=== PATIENT | female | born 1995 | race Asian ===

== ENCOUNTER 2016-09-11 14:08 | Emergency (ER) | payer BC ==
[2016-09-11 14:50] VITALS: BP 101/70; PULSE 76; RESP 18; TEMP 98.6; O2SAT 98
--- NOTE | 2016-09-11 15:23 | UCPHY ---
H & P Time Seen by Provider: 09/11/16 15:10 Patient Type: New HPI/ROS: This patient presents with a chief complaint of a sore throat which she has had for 3 days. She has had that pressure in left ear and the throat pain is primarily on the left. She has had minimal congestion and no cough she has had a subjective fever. She has noticed that opening her mouth is painful. Patient was given penicillin by her mother anus had 2 doses of 500 mg each the last being at 11:30 a.m. today. Smoking Status: Never smoked Physical Exam: This is a well-developed well-nourished female who is mildly uncomfortable. She is alert lucid and has a normal mental status. Throat: There is swelling in the left side of the throat but I do not believe that this represents a peritonsillar abscess although it could be an early 1. There is erythema. Neck: There is anterior left-sided tender adenopathy. There is none on the right and none posteriorly. Ears: Tympanic membranes are normal. Constitutional: Initial Vital Signs Temperature (C) 37.0 C 09/11/16 14:49 Heart Rate 76 09/11/16 14:49 Respiratory Rate 18 09/11/16 14:49 Blood Pressure 101/70 09/11/16 14:49 O2 Sat (%) 98 09/11/16 14:49 O2 Delivery Mode Room Air Allergies/Adverse Reactions: No Known Allergies Allergy (Unverified 09/11/16 14:38) Home Medications: Medication Instructions Recorded Penicillin V Potassium [Pen Vk] 500 mg PO QID #38 tab 09/11/16 Medical Decision Making Differential Diagnosis: This patient may have an early peritonsillar abscess but I do not feel that surgery is indicated currently. She was strongly advised to seek re-evaluation if her symptoms have not improved in the next 24 hours or go to emergency room if her symptoms continue to worsen. - Data Points Laboratory Results: 09/11/16 09/11/16 Unknown 14:40 Group A Strep Screen NEGATIVE (NEGATIVE) Group A Strep DNA Pending Departure - Departure Disposition: Home, Routine, Self-Care Clinical Impression: Streptococcal tonsillitis Condition: Good Instructions: Strep Throat (ED) Additional Instructions: If your symptoms have not improved in 24 hours you need to be re-evaluated. You may be developing an abscess which could make this illness much more severe. Return here if necessary. Adult Pain & Fever Control: We recommend Acetaminophen (Tylenol) and Ibuprofen (Motrin, Advil) for pain and fever control. When fever is high or pain severe, both drugs can be used at the same time, but at different intervals. Please note the time differences. Your dose is: Acetaminophen [650]mg every 4 to 6 hours ibuprofen [600]mg every [6] hours with food OR naproxen Sodium (Aleve) [440]mg every 12 hours. Note: do not take Acetaminophen with Hydrocodone (Vicodin, Lortab) or Oxycodone (Percocet). These medications also contain Acetaminophen. No more than 3000 mg of Acetaminophen should be taken in 24 hours (for an adult) . The maximal dose of ibuprofen that it is safe in a 24-hour period is 2400 mg. You may take 400 mg every 4 hours, 600 mg every 6 hours or 800 mg every 8 hours safely. Referrals: NONE *PRIMARY CARE P,. [Primary Care Provider] - As per Instructions Prescriptions: Penicillin V Potassium [Pen Vk] 500 mg PO QID #38 tab - PQRS PQRS Measurement: Not applicable
== END 2016-09-11 15:45 | disposition home or self-care (01) ==
LOC: CED 14:08
DX: R07.0 Pain in throat (principal); H93.92 Unspecified disorder of left ear
CPT/HCPCS: 87880-PO; 99203-PO; G0463-PO

== ENCOUNTER 2016-09-11 21:00 | Inpatient (IN) | payer BC ==
[2016-09-11] MEDS ORDERED: NS 1,000 ML IV ONE (22:05)
[2016-09-11] MEDS ORDERED: DEXAMETHASONE 10 MG/ML VIAL ONE (22:09)
[2016-09-11] MEDS ORDERED: DEXAMETHASONE 10 MG/ML VIAL IVP ONE (22:13)
--- NOTE | 2016-09-11 22:16 | EDPHY ---
General Narrative: CHIEF COMPLAINT: Sore throat, difficulty swallowing HISTORY OF PRESENT ILLNESS: sore throat that started on Sunday. Mild 1st and now severe. Continually worsening. Difficult to eat or drink anything. No difficulty breathing. Minimal cough. No fever or chills. No headache. her mother is a physician and prescribed penicillin over the weekend without improvement. She was seen at urgent care Earlier today, when they diagnosed her with a peritonsillar abscess and sent her to the emergency department. No other associated complaints or modifying factors. REVIEW OF SYSTEMS: Ten systems reviewed and are negative unless otherwise noted in the HPI EXAMINATION General Appearance: Alert, no distress Head: normocephalic, atraumatic Eyes: Pupils equal and round, no conjunctival pallor or injection . EOMs intact. ENT, Mouth: Mucous membranes moist . Uvula significantly deviated to the right. There is a significant left-sided tonsillar abscess with erythema. Trismus is noted. Neck: Normal inspection, supple, non-tender . Anterior cervical lymphadenopathy. Respiratory: Lungs are clear to auscultation . No wheezing, rhonchi or crackles. Cardiovascular: Regular rate and rhythm . No murmur. Neurological: A&O, nonfocal, normal gait . Strength symmetric in all limbs. Skin: Warm and dry, no rash Extremities: Nontender, no pedal edema Psychiatric: Mood and affect normal DIFFERENTIAL DIAGNOSES: Including but not limited to Peritonsillar abscess, strep pharyngitis, viral pharyngitis, pharyngitis MDM: 10:05 p.m. sore throat with evidence of peritonsillar abscess. She does have trismus and deviation of the uvula to the right. She has significant erythema and edema. The airway is patent but minimally so. She is in no acute distress and she is managing her secretions. We will place IV access, IV fluid, Decadron and I have put a page out for Ear Nose and Throat to see her here in the emergency department. 10:20 p.m. I discussed the case with the on-call physician operations assistant Aureliano Flores. he will come see the patient in the emergency department to drain the abscess. He has requested 300 mg IV clindamycin. 11:15 p.m. ZAYRA Flores is at bedside performing incision and drainage. In addition to the Percocet and clindamycin as prescribed, he is requesting Decadron. He liked the patient be on 8 mg daily for 2 days starting tomorrow, and then 4 mg daily for 2 days. He will provide discharge instructions as well as follow-up instructions with himself or with his supervising physician. 11:45 p.m. ZAYRA Mark attempted to needle aspirate as well as incise and drained without significant return. He feels this is likely more phlegmon than abscess. He is requesting admission to the hospitalist and they will provide consultation. I have discussed this with the hospitalist Dr. Marino. She will admit the patient. The patient is admitted in stable condition being evaluated by the hospitalist at this time. SUPERVISION: This patient was independently evaluated without the aide of supervising physician. - History Smoking Status: Never smoked - Objective Vital Signs: Initial Vital Signs Temperature (C) 98.6 F 09/11/16 21:04 Heart Rate 67 09/11/16 21:04 Respiratory Rate 16 09/11/16 21:04 Blood Pressure 117/78 09/11/16 21:04 O2 Sat (%) 98 09/11/16 21:04 O2 Delivery Mode Room Air Allergies/Adverse Reactions: No Known Allergies Allergy (Verified 09/11/16 21:07) Home Medications: Medication Instructions Recorded Penicillin V Potassium [Pen Vk] 500 mg PO QID #38 tab 09/11/16 Medications Given: Discontinued Medications Dexamethasone (Decadron Injection) 10 mg IVP EDNOW ONE Stop: 09/11/16 22:14 Last Admin: 09/11/16 22:13 Dose: 10 mg Sodium Chloride (Ns) 1,000 mls @ 0 mls/hr IV ONCE ONE PRN Reason: Wide Open Stop: 09/11/16 22:06 Last Admin: 09/11/16 22:13 Dose: 1,000 mls Clindamycin Phosphate/Dextrose (Cleocin 600 Mg (Premix)) 50 mls @ 100 mls/hr IV ONCE ONE PRN Reason: Protocol Stop: 09/11/16 22:46 Last Admin: 09/11/16 22:29 Dose: 50 mls Departure - Departure Disposition: [facility] Inpatient Acute Clinical Impression: Peritonsillar abscess Condition: Good Instructions: Clindamycin (By mouth), Oxycodone/Acetaminophen (By mouth), Peritonsillar Abscess (ED) Additional Instructions: Follow up with the ENT physician as discussed. Return to the ER for worsening pain, difficulty swallowing or drooling Referrals: NONE *PRIMARY CARE P,. [Primary Care Provider] - As per Instructions Jc Jensen MD [Medical Doctor] - As per Instructions
[2016-09-11] MEDS ORDERED: CLINDAMYCIN 600 MG/DEXTROSE 50 ML IV ONE (22:17)
[2016-09-11] MEDS ORDERED: OXYCODONE/APAP 5/325MG PREPACK#4 BTL TAKEHOME ONE (22:23)
[2016-09-11] MEDS ORDERED: CLINDAMYCIN 150MG PREPACK#6 BTL TAKEHOME ONE (22:24)
[2016-09-12] MEDS ORDERED: HYDROCODONE/APAP 5/325 TAB PO PRN (00:13)
[2016-09-12] MEDS ORDERED: ACETAMINOPHEN 325 MG TAB PO PRN (00:13)
[2016-09-12] MEDS ORDERED: ONDANSETRON DISINTEGRATING 4 MG TAB PO PRN (00:13)
[2016-09-12] MEDS ORDERED: ONDANSETRON 4 MG/2 ML VIAL IVP PRN (00:13)
[2016-09-12] MEDS ORDERED: ACETAMINOPHEN 325 MG TAB PO ONE (00:19)
[2016-09-12] MEDS ORDERED: ACETAMINOPHEN 500 MG TAB ONE (00:23)
--- NOTE | 2016-09-12 00:57 | GHP ---
DATE OF ADMISSION: 09/11/2016 CHIEF COMPLAINT: Sore throat. HISTORY OF PRESENT ILLNESS: A 21-year-old female who presents with complaints of progressing sore t hroat. Patient initially had symptoms approximately 72 hours prior to presentation and reports that steadily she has had increasing pain over the course of the last 3 days. Patient's mother is a phy sician and initiated outpatient penicillin orally preceding her presentation to the emergency depart ment. The patient reports marked pain with fluid and solid food intake, which has greatly limited h er nutritional and fluid intake in the course of the last 3 days. The patient denies any nausea or vomiting. Denies diarrhea. Endorses subjective fevers and chills. Denies any new rashes. 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 She denies any headache or visio n changes. PAST MEDICAL HISTORY: None. SOCIAL HISTORY: Negative for tobacco. Rare alcohol. No illicit drugs or marijuana. FAMILY HISTORY: Positive for lung cancer. REVIEW OF SYSTEMS: A 10-point review of systems is negative with the exception of that reported in the HPI. PHYSICAL EXAMINATION: VITAL SIGNS: Blood pressure is 118/67, heart rate 72, respiratory rate 16, 9 9% on room air, temperature is 37.7. GENERAL: This is a pleasant young female in mild distress. H EENT: Notable for marked swelling of the left side of the lower jaw line. Oropharynx has notable s welling of the left-sided tonsils peritonsillar region. Right side has some anterior palpable subme ntal nodes, otherwise markedly smaller lymphadenopathy. No posterior auricular or occipital nodes a re appreciated. Eyes are negative for any icterus. CARDIAC: Patient is regular rate and rhythm. PULMONARY: Good respiratory effort. Clear to auscultation bilaterally. GASTROINTESTINAL: Positiv e bowel sounds. ABDOMEN: Soft and nontender to palpation in all 4 quadrants. MUSCULOSKELETAL: Ne gative for any lower extremity edema. SKIN: Negative for any rashes. NEUROLOGIC: She is alert an d oriented x3. PSYCHIATRIC: She is pleasant and cooperative on interview and examination. LABORATORY DATA: A group A strep screen is negative. DNA for strep is pending. Telemetry, which I personally reviewed and interpreted shows sinus rhythm. ASSESSMENT AND PLAN: This is a 21-year-old female presenting with progressing sore throat and unila teral neck swelling. 1. Acute presumed peritonsillar abscess/phlegmon. Attempted drainage was performed by the ENT in [facility] emergency department and no successful exudate was drained. Patient will be admitted, placed on IV antibiotics, IV pain medications, and IV fluids overnight with a re-attempt and evaluation by ENT in the morning. The patient has had limited ability to take p.o. Will continue IV fluids overnigh t as I suspect her oral intake will remain limited and use IV pain medications for any pain requirin g treatment. Suspect her pain may be acutely worse after the attempted incision and drainage. We w ill treat with IV Decadron. In the morning can re-evaluate ongoing use of steroids at that time wit h ENT. 2. Low-grade fever. Will check a CBC, treat with Tylenol and again empiric antibiotics with clinda mycin. 3. Prophylaxis. Patient is young and ambulating. Will use sequential compression devices while in bed. DIET: Regular as she can tolerate. DISPOSITION: I expect less than 2 midnights if the patient responds well to IV antibiotics. Discus sed the case with the ENT, as well as the emergency department. Patient will be triaged to the [facility]-surgical floor for care. /[id number]/MODL
[2016-09-12] MEDS: NS 1,000 ML IV SCH ×2 (01:08→17:02)
--- NOTE | 2016-09-12 05:14 | GCON ---
CONSULT NOTE. HISTORY OF PRESENT ILLNESS: This is a 21-year-old female, who presents to the emergency department this evening for sore throat. Patient states it started 2- 3 days ago. It has gradually worsened over that time. The patient's mother is a physician and prescribed her a course of penicillin over the weekend, without any significant improvement. She notes that the left side of her throat is much worse. Admits to very mild left-sided ear pain. Does have some trismus. No difficulty breathing. No fevers or chills. PHYSICAL EXAM: This is a 21-year-old female, in no acute distress. Her head and face are normal. Voice is slightly muffled. No stridor. Oropharyngeal exam reveals uvula is edematous and slightly deviated to the right. Soft palate with a slight bulge on the left consistent with possible peritonsillar abscess vs phlegmon. NECK: Palpation of neck reveals left-sided tender lymphadenopathy. Informed consent was obtained from the patient for incision and drainage of left peritonsillar abscess. Hurricaine spray was used for topical anesthesia. 2 cc of lidocaine with epi were then used for further local anesthesia. 18- gauge needle was then used to attempt aspiration 4 times without significant purulent return, though at 1 point there was thick cheesy exudate that was expressed. A 15 blade scalpel then used to incise the peritonsillar space, with very minimal return of purulence. Patient tolerated well. ASSESSMENT AND PLAN: This is a 21-year-old female, with possible left-sided peritonsillar abscess, though no significant purulent return on incision and drainage. I did discuss with Dr. Jensen, my attending physician, and we agreed to admit the patient to the hospitalist for IV clindamycin and IV Decadron, with reassessment in the morning for possible need for repeat attempt at drainage. I did speak to the hospitalist this evening in the emergency room and recommended the patient be given clindamycin 600 mg t.i.d. IV while in- house. Would also recommend 10 mg of Decadron q.8 hours while in-house. ENT will see the patient tomorrow morning and determine further action at that point. 1. Admit to the hospitalist for IV antibiotics and IV steroids. 2. Recommend IV clindamycin 600 mg t.i.d. 3. Recommend IV Decadron 10 mg q.8h hours. 4. ENT will evaluate the patient tomorrow and assess for need for further intervention. This plan was discussed with my attending, Dr. Jensen and he agrees with the above. Thanks so much for allowing us participate in the care of this patient. If you have any further questions, please do not hesitate to contact me. Aureliano Flores PA-C Supervising Physician Dr. Jc Jensen /[id number]/MODL MTDD
[2016-09-12 05:27] LABS: % IMMATURE GRANULYOCYTES 0.5 % (0.0-1.1); ADD DIFF? NO; ADD MORPH? NO; ADD SCAN? NO; ATYPICAL LYMPHOCYTE FLAG 0 (0-99); FRAGMENT RBC FLAG 0 (0-99); HEMOGLOBIN 13.4 g/dL (12.6-16.3); LEFT SHIFT FLG 10 (0-99); LIPEMIA HEMOLYSIS FLAG 80 (0-99); MEAN CELL HEMOGLOBIN 32.4 pg (27.9-34.1); MEAN CELL HEMOGLOBIN CONCENTR. 33.5 g/dL (32.4-36.7); MEAN CELL VOLUME 96.6 fL (81.5-99.8); MEAN PLATELET VOLUME 10.3 fL (8.7-11.7); PLATELET CLUMPS FLAG 0 (0-99); PLATELET COUNT 219 10^3/uL (150-400); RED BLOOD CELL COUNT 4.14 10^6/uL (4.18-5.33); RED CELL DISTRIBUTION WIDTH 11.9 % (11.5-15.2)
[2016-09-12] MEDS: DEXAMETHASONE 10 MG/ML VIAL IVP SCH (05:52)
[2016-09-12] MEDS ORDERED: CLINDAMYCIN 600 MG/DEXTROSE 50 ML IV SCH (06:00)
--- NOTE | 2016-09-12 08:20 | SOAPPROG ---
SOAP Progress Note Assessment/Plan: Assessment: 21 year old female with left sided phlegmon vs BUILDING DISMANTLER. Patient notes feeling "a lot better" overnight. Much easier to swallow and talk. She still has left sided asymmetry. Will continue antibiotics/steroids and reassess this afternoon with Dr. Jensen. - Continue clindamycin/decadron - Will reassess this afternoon with Dr. Jensen for need for further intervention vs discharge 09/12/16 08:18 Subjective: 21 year old female with left peritonsillar abscess vs phlegmon. Attempted I&D last night without significant purulent return. She feels "much better" this AM with use of antibiotics/steroids. She notes it is much easier to swallow/ talk. Objective: Vital Signs Temp Pulse Resp BP Pulse Ox 36.4 C 49 L 16 109/68 98 09/12/16 07:32 09/12/16 07:32 09/12/16 07:32 09/12/16 07:32 09/12/16 07:32 Laboratory Results 09/12/16 04:23 09/11/16 09/12/16 09/13/16 05:59 05:59 05:59 Intake Total 1000 Balance 1000 Voice improved, though still muffled Trismus improved Ecchymosis to area of attempted I&D Still with left sided asymmetry and edema, no significant soft palate bulge, however ICD10 Worksheet Patient Problems: Problems Problem Status Onset Peritonsillar abscess Acute
[2016-09-12 12:38] LABS: CREATININE 0.7 mg/dL (0.6-1.0); GLOMERULAR FILTRATION RATE > 60
[2016-09-12] MEDS ORDERED: IOPAMIDOL (ISOVUE-300) 100 ML BTL IV ONE (13:09)
--- NOTE | 2016-09-12 13:21 | GCON ---
INFECTIOUS DISEASE CONSULTATION. DATE OF CONSULTATION: 09/12/2016 REFERRING PHYSICIAN: Emi Sauceda NP REASON FOR CONSULTATION: Possible peritonsillar abscess for further evaluation and management. CHIEF COMPLAINT: Acute sore throat with swelling of the jaw and neck. HISTORY OF PRESENTING ILLNESS: This is a 21-year-old, female with no significant past medical history whose symptoms started late last week with sore throat. Initially, it was mild sore throat over 1-2 days, but then it progressively became worse where she was having increasing pain with swallowing liquids and solids. By September 10, she started to have fevers with shaking chills. She took ibuprofen which did help improve symptoms briefly, but then the fevers and chills came back. She was placed on penicillin 500 mg twice a day by her mother who is a supervisor paper machine in [place], [place]. She took this Sunday and into Sunday with no improvement in her symptoms and actually worsening of symptoms. She stated that her cheek, jaw line and neck started to become swollen, and she was having more pain with swallowing. She went to the urgent care yesterday and had a throat swab done which was group A strep screen negative and the DNA is pending. The urgent care physician then increased her penicillin dosing to 500 mg q.6 hours, but later in the day, she continued to feel worse and thus came to the ER for further evaluation. No imaging was done. No initial microbiology cultures were done with respect to blood cultures or any abscess culture. She was seen by ENT in the ER, had 4 attempts of aspiration and per visit note, it states that some type of cottage cheese- like material was aspirated at 1 point, but this was not sent for culture. She was then placed on clindamycin 600 mg IV q.8 hours and Decadron, and admitted to the hospital. No blood work was done prior to her admission or interventions. This morning, early blood work, after receiving clindamycin and Decadron, showed white blood cell count of 19.4 with a left shift. No other blood work was done. The patient feels slightly better with some decrease in pain, but still has pain on swallowing and swelling of her cheek, jaw line and neck. Infectious Disease is now consulted for further evaluation and opinion. REVIEW OF SYSTEMS: GENERAL: Denies any headaches. EYES: No change in vision. ENT: As above. Does deny any ear pain or ear drainage. CARDIOVASCULAR: Denies any chest pain or rapid heartbeat. RESPIRATORY: Denies any shortness of breath, cough or sputum production. Also denies any nasal drainage or postnasal drip. ABDOMEN: No nausea, vomiting, abdominal pain or diarrhea. : No dysuria or hematuria. BACK: No flank pain or back pain. MUSCULOSKELETAL: No joint pains or muscle aches. SKIN: No other rashes or open wounds noted. The rest of 10-point review of systems essentially negative except for above. PAST MEDICAL HISTORY: Proteinuria of uncertain etiology. Has had normal creatinine in past. PAST SURGICAL HISTORY: [place] tooth removed about 2-3 years ago. About 10 days post wisdom tooth removal, she did get an infection. She was placed on clindamycin and did well with no other sequelae. ALLERGIES: No known drug allergies. SOCIAL HISTORY: She is a nonsmoker. Drinks alcohol socially. Denies any illicit drug usage. Does not use marijuana. She lives in a town house with 2 other roommates who are currently well without any respiratory symptoms. She did have a boyfriend up until about 2 weeks ago. Last sexual encounter was about 3 weeks ago. First day of last menstrual period was about August 22. She was sexually active. Does use condoms 100% of the time. She was born in [place], [place]. Her parents live in [place], [place] now. She has not traveled outside of [place] recently. She has no pets. She does occasionally share utensils and food with her roommates and did with her boyfriend, but all are well. FAMILY HISTORY: Significant for her father having gout and hypertension. PHYSICAL EXAMINATION: VITAL SIGNS: Temperature current 36.4, T-max 37.7, pulse is 49, blood pressure 109/68, respiratory rate is 16, saturation 98% on room air. GENERAL: Patient is resting in bed in no acute respiratory distress. Awake, alert and oriented x3. HEENT: Head is normocephalic, atraumatic. Pupils are equal, round and reactive to light. No conjunctival injection. No petechiae. Oropharynx is a limited exam. The most that I can see is she has some erythema involving the hard palate over to the left side. She has swelling on the posterior pharynx toward that left side with bruising noted. Unable to see the uvula or the posterior pharynx well. She has swelling over the left cheek which extends over the jaw line and into the neck. She is tender, especially with neck palpation. CARDIOVASCULAR: S1, S2. Regular rate and rhythm. No murmurs appreciated. RESPIRATORY: Clear to auscultate bilaterally. No rhonchi or rales appreciated. ABDOMEN: Positive bowel sounds in all 4 quadrants. Soft, nontender, nondistended. No organomegaly appreciated. EXTREMITIES: No lower extremity edema. MUSCULOSKELETAL: No obvious joint effusions or pain on palpation of joints. SKIN: No other rashes. LABS: White blood cell count of 19.4, hemoglobin 13.4, platelets are 219, hematocrit 40, neutrophil count is 95%. No chemistries were done. No urine test was done. No microbiology data. No imaging. ASSESSMENT: Possible peritonsillar abscess. PLAN: We will check blood cultures x2 sets stat. Will discontinue clindamycin and broaden antimicrobials to Invanz therapy. Concerned about recent resistant patterns with strep intermedius that may be resistant to clindamycin, thus, favor changing antibiotics. Recommend a CAT scan with IV contrast stat of the neck to further evaluate extent of infection. This will help guide need for surgical intervention which she may likely require including possible tonsillectomy, depending on degree of involvement. We will check a urine test stat as well prior to her CAT scan. Care coordinated with the hospitalist team as well as Dr. Jensen from ENT. I also spoke with the mother on the phone, who is a physician in [place] as well. Plan of care discussed in detail with the patient. Care coordinated with radiology. Greater than 110 minutes spent in care of patient and the above coordination. I thank you very much for allowing us the opportunity to care for your patient in consultation. /[id number]/MODL MTDD
[2016-09-12] MEDS: ERTAPENEM 1 GM in NS 100 ML IV SCH (13:47)
--- NOTE | 2016-09-12 14:39 | HOSPPROG ---
Hospitalist Progress Note Assessment/Plan: Ginger is a 21-year-old female who presented to the emergency room with complaints of progressing sore throat. In talking with the patient she had been having subjective fevers and some chills relieved with ibuprofen. Her mom is a physician and initiated outpatient penicillin orally preceding her presentation to the emergency department. I reviewed her care with Dr. Brock. A CT scan has been ordered. Antibiotics will be change to Invanz. Today is my 1st encounter with the patient. Chart reviewed. * Tonsillar abscess / phlegmon - CT scan of the neck shows that she likely has an abscess or a phlegmon - on Invanz/was treated initially with clindamycin - patient is on Decadron - ENT involved with her care - blood cultures were sent and are pending * leukocytosis - could be due to the acute illness or from the steroids * plan. Will await for further input from ENT and Infectious Disease after they evaluate the CT scan. She will require another midnight stay for IV antibiotics and further evaluation. blood cultures are pending. Subjective: patient said that she is swallowing a little bit easier this afternoon Objective: Vital Signs Temp Pulse Resp BP Pulse Ox 36.4 C 55 L 14 113/72 96 09/12/16 11:53 09/12/16 11:53 09/12/16 11:53 09/12/16 11:53 09/12/16 11:53 Laboratory Results 09/12/16 04:23 09/12/16 11:55 09/11/16 09/12/16 09/13/16 05:59 05:59 05:59 Intake Total 1000 Balance 1000 - Physical Exam Constitutional: no apparent distress, appears nourished, No not in pain (mild) Ears, Nose, Mouth, Throat: hearing normal, other (left peritonsillar area w redness and swelling/ jaw line area with some swelling on left) Cardiovascular: regular rate and rhythym, no murmur, rub, or gallop Respiratory: no respiratory distress, no rales or rhonchi Gastrointestinal: normoactive bowel sounds Skin: warm, normal color Musculoskeletal: full muscle strength, no muscle tenderness Neurologic: AAOx3 Psychiatric: interacting appropriately, not anxious ICD10 Worksheet Patient Problems: Problems Problem Status Onset Peritonsillar abscess Acute
[2016-09-12] MEDS ORDERED: FLU VACC QS 2016-17(3-64YR)/PF 0.5 ML SYR (FLUARIX QUAD) IM ONE (15:53)
[2016-09-13 05:14] LABS: % IMMATURE GRANULYOCYTES 0.5 % (0.0-1.1); ADD DIFF? NO; ADD MORPH? NO; ADD SCAN? NO; ATYPICAL LYMPHOCYTE FLAG 10 (0-99); FRAGMENT RBC FLAG 0 (0-99); HEMATOCRIT 37.5 % (38.0-47.0); HEMOGLOBIN 12.7 g/dL (12.6-16.3); LEFT SHIFT FLG 0 (0-99); LIPEMIA HEMOLYSIS FLAG 90 (0-99); MEAN CELL HEMOGLOBIN 31.5 pg (27.9-34.1); MEAN CELL HEMOGLOBIN CONCENTR. 33.9 g/dL (32.4-36.7); MEAN CELL VOLUME 93.1 fL (81.5-99.8); MEAN PLATELET VOLUME 10.3 fL (8.7-11.7); PLATELET CLUMPS FLAG 0 (0-99); PLATELET COUNT 233 10^3/uL (150-400); RED BLOOD CELL COUNT 4.03 10^6/uL (4.18-5.33); RED CELL DISTRIBUTION WIDTH 11.8 % (11.5-15.2)
[2016-09-13 05:37] LABS: ALANINE AMINOTRANSFERASE 39 IU/L (9-52); ALBUMIN 3.2 g/dL (3.5-5.0); ALKALINE PHOSPHATASE 82 IU/L (38-126); ANION GAP 8 mEq/L (8-16); ASPARTATE AMINOTRANSFERASE 44 IU/L (14-46); BILIRUBIN,TOTAL 0.8 mg/dL (0.1-1.4); CALCIUM 8.8 mg/dL (8.5-10.4); CARBON DIOXIDE 24 mEq/l (22-31); CHLORIDE 106 mEq/L (97-110); CREATININE 0.7 mg/dL (0.6-1.0); GLOMERULAR FILTRATION RATE > 60; GLUCOSE 94 mg/dL (70-100); POTASSIUM 4.3 mEq/L (3.5-5.2); SODIUM 138 mEq/L (134-144); TOTAL PROTEIN 5.8 g/dL (6.3-8.2)
[2016-09-13] MEDS: DEXAMETHASONE 10 MG/ML VIAL IVP SCH (09:04)
[2016-09-13] MEDS: ERTAPENEM 1 GM in NS 100 ML IV SCH (09:04)
--- NOTE | 2016-09-13 09:51 | SOAPPROG ---
SOAP Progress Note Assessment/Plan: pt with left tonsillar phelgmon. She notes she sounds less muffled today. Her throat is slightly more sire than yesterday. She has not used any pain medications. Overall stable. o:- oc- ecchymosis left peritonsillar area, no erythema or fluctance appreciated. Plan:Patient with phegmon left tonsil area. She is stable. Dr. Jensen examined pt and we have elected to give the abx 1 more day( for a totla of 48 hrs) to see if she starts to turn the corner. if she doesn't we may need to take her to the OR. 09/13/16 09:48 Objective: Vital Signs Temp Pulse Resp BP Pulse Ox 36.8 C 55 L 14 111/74 99 09/13/16 08:01 09/13/16 08:01 09/13/16 08:01 09/13/16 08:01 09/13/16 08:01 Laboratory Results 09/13/16 04:18 09/13/16 04:18 09/12/16 09/13/16 09/14/16 05:59 05:59 05:59 Intake Total 1000 2068 Balance 1000 2068 - Pending Discharge Pending Discharge Within 48 Hours: Yes Pending Discharge Date: 09/15/16 Pending Discharge Time: 11:00 ICD10 Worksheet Patient Problems: Problems Problem Status Onset Peritonsillar abscess Acute
--- NOTE | 2016-09-13 13:39 | HOSPPROG ---
Hospitalist Progress Note Assessment/Plan: Ginger is a 21-year-old female who presented to the emergency room with complaints of progressing sore throat. In talking with the patient she had been having subjective fevers and some chills relieved with ibuprofen. Her mom is a physician and initiated outpatient penicillin orally preceding her presentation to the emergency department. Reviewed her care with Dr Jay and Dr Penaloza/ also, the 3 of us met with the patient to discuss plan of care. * Tonsillar abscess / phlegmon - CT scan of the neck shows that she likely has an abscess or a phlegmon - on Invanz/was treated initially with clindamycin - dc decadron/ ordered ibuprofen - blood cultures were sent and are pending - per ENT, not recommending to get her tonsils out at this time * leukocytosis - could be due to the acute illness or from the steroids * plan. two weeks of Invanz/patient and her mom to decide if they want her to have a PICC/ should be able to dc tomorrow. CM arranging for patient to come to for antibiotics. Subjective: Ginger said her throat was hurting this morning but better this afternoon. Objective: Vital Signs Temp Pulse Resp BP Pulse Ox 36.8 C 55 L 14 111/74 99 09/13/16 08:01 09/13/16 08:01 09/13/16 08:01 09/13/16 08:01 09/13/16 08:01 Laboratory Results 09/13/16 04:18 09/13/16 04:18 09/12/16 09/13/16 09/14/16 05:59 05:59 05:59 Intake Total 1000 2068 Balance 1000 2067 - Physical Exam Constitutional: no apparent distress, appears nourished, not in pain, other ( thin) Eyes: PERRL Ears, Nose, Mouth, Throat: other (left tonsil with ecchymosis and erythema) Cardiovascular: regular rate and rhythym Respiratory: no respiratory distress Skin: warm, normal color Musculoskeletal: full muscle strength Neurologic: AAOx3 Psychiatric: interacting appropriately Lymph, Heme, Immunologic: no cervical LAD ICD10 Worksheet Patient Problems: Problems Problem Status Onset Peritonsillar abscess Acute
--- NOTE | 2016-09-13 13:39 | PCMIDPN ---
Assessment/Plan: Assessment: L sided para-pharyngeal phlegmon/developing collection - no drainable focus per the CT scan at this point. May be able to be cleared with antibiotics alone while using steroids for inflammation. Would recommend 2 weeks of IV ertapenem followed by reimaging by CT. Recommend PICC -- patient will discuss with mother - physician in [place] and decide tomorrow. Wants to get ertapenem here on [facility]. Plan: 1. Continue empiric ertapenem. PLan 2 weeks of treatment then re-CT. 2. Possible PICC line and discharge tomorrow. 3. Follow up in office in one week time. 09/13/16 22:36 Subjective: Patient had some significant 7/10 sore throat pain this morning but since then it has been much better. No fevers. No new complaints. Objective: ertapenem #2 Vital Signs Temp Pulse Resp BP Pulse Ox 36.8 C 55 L 14 111/74 99 09/13/16 08:01 09/13/16 08:01 09/13/16 08:01 09/13/16 08:01 09/13/16 08:01 Laboratory Results 09/13/16 04:18 09/13/16 04:18 09/12/16 09/13/16 09/14/16 05:59 05:59 05:59 Intake Total 1000 2068 Balance 1000 2067 - Physical Exam General Appearance: WD/WN, alert, no apparent distress, thin, non-toxic EENT: No normal ENT inspection, No pharynx normal Respiratory: lungs clear, normal breath sounds, No respiratory distress Cardiac/Chest: regular rate, rhythm, No tachycardia Skin: normal color, warm/dry, No rash Neuro/Psych: alert, normal mood/affect, oriented x 3 ICD10 Worksheet Patient Problems: Problems Problem Status Onset Peritonsillar abscess Acute
[2016-09-13] MEDS: IBUPROFEN 200 MG TAB PO PRN ×2 (14:01→21:54)
[2016-09-13 23:39] VITALS: PULSE 45
[2016-09-14 07:50] VITALS: BP 112/72; RESP 16; TEMP 98.2; O2SAT 96
[2016-09-14] MEDS: ERTAPENEM 1 GM in NS 100 ML IV SCH (08:32)
--- NOTE | 2016-09-14 10:48 | SOAPPROG ---
SOAP Progress Note Assessment/Plan: pt with left tonsillar phlegmon. She notes she she is feeling much better today. Voice improved, pain improved. o:- oc- ecchymosis left peritonsillar area, no erythema or fluctance appreciated. Plan:Patient with phlegmon left tonsil area. She is doing much better. At this point ID is going to continue IV abx through PICC line. She will be discharged today. She should f/u with us if sx return. 09/13/16 09:48 09/14/16 10:46 Objective: Vital Signs Temp Pulse Resp BP Pulse Ox 36.8 C 45 L 16 112/72 96 09/14/16 07:49 09/14/16 07:49 09/14/16 07:49 09/14/16 07:49 09/14/16 07:49 Laboratory Results 09/13/16 04:18 09/13/16 04:18 09/13/16 09/14/16 09/15/16 05:59 05:59 05:59 Intake Total 2067 Balance 2068 - Pending Discharge Pending Discharge Within 24 Hours: Yes Pending Discharge Date: 09/15/16 Pending Discharge Time: 11:00 ICD10 Worksheet Patient Problems: Problems Problem Status Onset Peritonsillar abscess Acute
[2016-09-14] MEDS: IBUPROFEN 200 MG TAB PO PRN (12:50)
[2016-09-14] MEDS ORDERED: ALTEPLASE 2 MG VIAL IVP PRN (14:21)
--- NOTE | 2016-09-14 16:38 | PDIAF ---
- Diagnosis Diagnosis: Peritonsillar abscess/phlegmon Code Status: Full Code - Medication Management Discharge Medications: Medications to Continue on Transfer Acetaminophen [Tylenol 325mg (*)] 650 mg PO Q4HRS PRN #0 tab 09/14/16 [Last Taken Unknown] Alteplase [Cathflo Activase 2 mg (*)] 2 mg IVP PRN PRN #0 vial 09/14/16 [Last Taken Unknown] Ertapenem [INVanz] 1 gm IV DAILY #0 vial 09/14/16 [Last Taken Unknown] Ibuprofen [Motrin (*)] 400 mg PO Q6HRS PRN #0 tab 09/14/16 [Last Taken Unknown] Innersole Maker Antibiotics: Invanz 1 g IV Q 24 hours Retirement Antibiotic Stop Date: 09/25/16 Discharge Medications: Refer to the Discharge Home Medication list for PRN reason. PICC Care - Routine: Yes - Labs/Radiology CBC Date: 09/18/16 CMP Date: 09/18/16 Call or Fax Lab and Imaging Results to: Dr. Brock, - Follow Up Care Current Providers and Referrals: Jc Jensen MD [Medical Doctor] - As per Instructions NONE *PRIMARY CARE P,. [Primary Care Provider] - As per Instructions Benito Brock MD [Medical Doctor] - 09/18/16 2:00 pm
--- NOTE | 2016-09-14 16:52 | GDS ---
[f rep st] DISCHARGE SUMMARY DISCHARGE DIAGNOSES: 1. Left-sided parapharyngeal phlegmon. 2. Leukocytosis. 3. Pain. PHYSICAL EXAM: GENERAL: The patient is alert. VITAL SIGNS: Afebrile at 36.8 , pulse 45, respiratory rate 16, blood pressure is 112/72. She is saturating 96 % on room air. I have seen and evaluated the patient on the day of discharge. HOSPITAL COURSE: The patient is a 21-year-old female who presented to the emergency room with complaints of a sore throat. She was evaluated and diagnosed with a tonsillar abscess, as well as phlegmon and leukocytosis. During this hospitalization she received a consultation from Infectious Disease , as well as Ear, Nose and Throat. She has been placed on IV antibiotic therapy , with a CT of her neck being performed. A PICC line has been placed, and she will continue IV antibiotic therapy in the outpatient setting per Infectious Disease recommendations. The patient is comfortable with this plan and eager to be discharged home. Her pain is tolerable. She is able to take in oral intake, and is safe to follow up in the outpatient setting. I reviewed her disposition with Dr. Gallego of Infectious Disease, he is in agreement with this plan. DISCHARGE MEDICATIONS: Please refer to EMR form. I have not provided the patient any prescriptions at the time of disposition. She will continue IV ertapenem on a daily basis. Followup will be with Dr. Jensen as well as Infectious Disease. I spent greater than 35 minutes in the care, coordination, and management of the patient's disposition. /[id number]/MODL MTDD
--- NOTE | 2016-09-14 17:03 | PCMIDPN ---
Assessment/Plan: Assessment/Plan: * Left-sided peritonsillar abscess/phlegmon: Clinically improved without trismus, significant sore throat, or difficulty with oral intake. Initial CT scan and clinical findings reviewed with ENT today. Plan to continue therapy with ertapenem with continued outpatient follow-up. If patient were to experience recurrent symptoms or worsening, ENT plan would be for tonsillectomy at that point in time. Plan weekly CBC and CMP on antibiotic therapy. Risks of PICC line including DVT or infection were discussed with patient today. Patient will follow up with Dr. Brock in our office on Sunday. 09/14/16 17:05 Subjective: Patient feels significantly improved. Eager to go home. Sore throat this a.m. but resolved subsequently. No anterior neck pain. Tolerating oral intake. Objective: Vital Signs Temp Pulse Resp BP Pulse Ox 36.8 C 45 L 16 112/72 96 09/14/16 07:49 09/14/16 07:49 09/14/16 07:49 09/14/16 07:49 09/14/16 07:49 Laboratory Results 09/13/16 04:18 09/13/16 04:18 09/13/16 09/14/16 09/15/16 05:59 05:59 05:59 Intake Total 2067 Balance 2067 Ertapenem # 3 Blood cultures x2 no growth CT scan reviewed with hypodense peritonsillar collection present - Physical Exam General Appearance: alert, no apparent distress EENT: other (Hemorrhagic appearance around left tonsillar bed; elevates palate well; no trismus) Neck: No tender lateral Cardiac/Chest: regular rate, rhythm, systolic murmur (2/6 throughout) Abdomen: non-tender, No distended ICD10 Worksheet Patient Problems: Problems Problem Status Onset Peritonsillar abscess Acute
== END 2016-09-14 17:19 | disposition home or self-care (01) | DRG 134 ==
LOC: F3N 09-12 00:36
PROVIDERS: ADMIT Hospitalist; ATTEND Family Medicine
PROC: 0C9PXZZ Drainage of Tonsils, External Approach (ICD-10-PCS; principal; 2016-09-11)
PROC: 02HV33Z Insertion of Infusion Device into Superior Vena Cava, Percutaneous Approach (ICD-10-PCS; 2016-09-14)
DX: J36 Peritonsillar abscess (principal); D72.829 Elevated white blood cell count, unspecified; Z23 Encounter for immunization
CPT/HCPCS: 96374; C1751; G0008; J1335; Q9967